=== PATIENT | male | born 1955 | race Caucasian/White ===

== ENCOUNTER → 2017-02-08 | Day surgery (SDC) | payer BC ==
[2017-02-03 15:07] LABS: Basophils # (auto) 0.1 uL; Basophils % (auto) 0.6 % (0.0-2.0); Eosinophils # (auto) 0.2 uL; Eosinophils % (auto) 2.9 % (0.0-7.0); Hematocrit 53.1 % (41.0-53.0); Hemoglobin 17.5 g/dL (13.5-17.5); Lymphocytes # (auto) 2.5 uL; Lymphocytes % (auto) 29.1 % (10.0-50.0); Mean Corpuscular Hemoglobin 29.5 pg (28.0-32.0); Mean Corpuscular Hgb Conc. 32.9 g/dL (32.0-36.0); Mean Corpuscular Volume 89.6 fL (80.0-100.0); Monocytes # (auto) 1.1 uL; Monocytes % (auto) 13.1 % (0.0-12.0); Neutrophils # (auto) 4.6 uL; Neutrophils % (auto) 54.3 % (37.0-80.0); Nucleated Red Blood Cells % 0.7 %; Platelet Count (auto) 266 10^3/uL (140-450); White Blood Cell 8.5 10^3/uL (4.4-10.8)
[2017-02-03 15:14] LABS: INR 0.99 (0.9-1.15); Partial Thromboplastin Time 28.7 sec (22.64-33.71); Prothrombin Time 10.8 sec (9.37-12.3)
[2017-02-03 15:19] LABS: Calcium 9.6 mg/dL (8.5-10.1); Potassium 4.2 mmol/L (3.5-5.1)
[2017-02-03 16:08] LABS: Urine Bilirubin Negative (Negative); Urine Blood TRACE /uL (Negative); Urine Color Yellow (Yellow); Urine Glucose Normal (Normal); Urine Ketone Negative (Negative); Urine Nitrite POSITIVE (Negative); Urine RBC 4 /hpf (0 - 3); Urine Squamous Epithelial Cell FEW /hpf (<5); Urine Urobilinogen Normal (Negative); Urine pH 6.5 (5.0-8.0)
[~2017-02-08] VITALS: Ht 182.9 cm; Wt 147.4 kg
[~2017-02-08] MED LIST: FENO145T20 PO; LISI-646 PO
== END | disposition home or self-care (01) ==
LOC: SUR 11:28
PROVIDERS: ATTEND Urology
DX: N32.9 Bladder disorder, unspecified (principal); Z53.8 Procedure and treatment not carried out for other reasons; E66.9 Obesity, unspecified; Z68.41 Body mass index [BMI] 40.0-44.9, adult; Z88.5 Allergy status to narcotic agent
CPT/HCPCS: 36415; 80048; 81001; 85025; 85610; 85730; 87086; 87088; 87186

== ENCOUNTER 2017-03-08 06:05 | Day surgery (SDC) | payer BC ==
[2017-03-04 12:47] LABS: Basophils # (auto) 0.1 uL; Basophils % (auto) 0.8 % (0.0-2.0); Eosinophils # (auto) 0.2 uL; Eosinophils % (auto) 2.7 % (0.0-7.0); Hematocrit 51.3 % (41.0-53.0); Hemoglobin 17.1 g/dL (13.5-17.5); Lymphocytes # (auto) 2.3 uL; Lymphocytes % (auto) 33.2 % (10.0-50.0); Mean Corpuscular Hemoglobin 29.6 pg (28.0-32.0); Mean Corpuscular Hgb Conc. 33.3 g/dL (32.0-36.0); Mean Corpuscular Volume 88.8 fL (80.0-100.0); Monocytes # (auto) 0.6 uL; Monocytes % (auto) 9.5 % (0.0-12.0); Neutrophils # (auto) 3.7 uL; Neutrophils % (auto) 53.8 % (37.0-80.0); Nucleated Red Blood Cells % 0.1 %; Platelet Count (auto) 255 10^3/uL (140-450); Red Cell Distribution Width 14.6 % (11.8-14.3); White Blood Cell 6.8 10^3/uL (4.4-10.8)
[2017-03-04 12:53] LABS: BUN/Creatinine Ratio 26.8; Calcium 9.6 mg/dL (8.5-10.1)
[2017-03-04 12:54] LABS: Urine Bilirubin Negative (Negative); Urine Blood 2+ /uL (Negative); Urine Color Yellow (Yellow); Urine Glucose Normal (Normal); Urine Ketone Negative (Negative); Urine Mucus FEW (None Seen); Urine Nitrite Negative (Negative); Urine RBC 32 /hpf (0 - 3); Urine Urobilinogen Normal (Negative); Urine pH 6.5 (5.0-8.0)
[2017-03-04 13:04] LABS: INR 1.01 (0.9-1.15); Partial Thromboplastin Time 29.1 sec (22.64-33.71)
[~2017-03-08] VITALS: Ht 182.9 cm; Wt 147.4 kg
[2017-03-08] MEDS ORDERED: ceFAZolin 1GM/50ML 50 ML IV ONE (06:53)
[2017-03-08] MEDS ORDERED: fentaNYL CITRATE 100 MCG/2 ML VL ONE (07:37)
[2017-03-08] MEDS ORDERED: MIDAZOLAM HCL 1MG/1ML-2 ML VIAL ONE (07:37)
[2017-03-08] MEDS ORDERED: PROPOFOL 10 MG/ML 20 ML IV ONE (07:37)
[2017-03-08] MEDS ORDERED: ROCURONIUM 10MG/ML 10ML VIAL IV ONE (07:38)
[2017-03-08] MEDS ORDERED: LIDOCAINE 1% HCL (LOCAL ANESTH.) INJ 20ML MDV ONE (07:43)
[2017-03-08] MEDS ORDERED: SUCCINYLCHOLINE CHLORIDE 20 MG/ML 10ML VIAL IV ONE (07:45)
[2017-03-08] MEDS ORDERED: IOHEXOL 300 MG/ML 100ML BOTTLE IJ ONE (08:25)
[2017-03-08] MEDS ORDERED: ONDANSETRON HCL 4 MG/2 ML VIAL IV ONE (09:45)
[2017-03-08] MEDS ORDERED: hydrALAZINE HCL 20 MG/ML VL IV PRN (09:45)
[2017-03-08] MEDS ORDERED: MORPHINE SULF INJ 2 MG/ML SYRINGE 1ML IV PRN (09:45)
[2017-03-08] MEDS ORDERED: ePHEDrine SULFATE 50 MG/ML AMP IV PRN (09:45)
[2017-03-08] MEDS ORDERED: FUROSEMIDE 20 MG/2 ML VIAL ONE (09:48)
[2017-03-08] MEDS ORDERED: FUROSEMIDE 20 MG/2 ML VIAL IV ONE (10:00)
[2017-03-08 11:10] VITALS: BP 108/81
== END 2017-03-08 11:10 | disposition home or self-care (01) ==
LOC: SUR 06:05
PROVIDERS: ATTEND Urology
DX: N20.0 Calculus of kidney (principal); N32.9 Bladder disorder, unspecified; D69.6 Thrombocytopenia, unspecified; Z88.5 Allergy status to narcotic agent; E66.9 Obesity, unspecified; Z68.41 Body mass index [BMI] 40.0-44.9, adult
CPT/HCPCS: 36415; 50590; 52224; 52332; 80048; 81001; 85025; 85610; 85730; 87086; C1769; C2617; J0330; J0690; J1940; J2001; J2250; J2704; J3010; Q9967

== ENCOUNTER → 2020-10-29 | Outpatient (CLI) | payer BC ==
[~2020-10-29] MED LIST changes: +BUPIVACAINE HCL 0.25% P/F 10 ML VIAL ONE; -FENO145T20 PO; +FENO145T27 PO; +IOHEXOL 300 MG/ML 100ML BOTTLE IJ ONE; +LIDOCAINE 2%HCL (LOCAL ANESTH.) INJ 20ML MDV ONE; -LISI-646 PO; +LISI20TA28 PO; +methylPREDNISolone ACETATE 80 MG/ML VL ONE
== END | disposition home or self-care (01) ==
LOC: XY 10:46
DX: M25.551 Pain in right hip (principal); Z88.5 Allergy status to narcotic agent; Z98.890 Other specified postprocedural states; Z79.899 Other long term (current) drug therapy
CPT/HCPCS: 20610; 73502; 77002; J1040; J3490; Q9967; 76000

== ENCOUNTER 2021-08-08 07:17 | Inpatient (IN) | payer BC ==
[~2021-08-08] VITALS: Ht 180.3 cm; Wt 122.0 kg
[~2021-08-08 07:17] MED LIST changes: -BUPIVACAINE HCL 0.25% P/F 10 ML VIAL ONE; -IOHEXOL 300 MG/ML 100ML BOTTLE IJ ONE; -LIDOCAINE 2%HCL (LOCAL ANESTH.) INJ 20ML MDV ONE; -methylPREDNISolone ACETATE 80 MG/ML VL ONE
[2021-08-08 08:45] LABS: Urine Bacteria NONE SEEN /hpf (None Seen); Urine Blood 3+ /uL (Negative); Urine Budding Yeast FEW /hpf (None Seen); Urine Mucus FEW (None Seen); Urine Specific Gravity 1.019 (1.001-1.035); Urine WBC 669 /hpf (0 - 3); Urine WBC Clumps PRESENT /hpf (None Seen)
[2021-08-08 09:40] LABS: Hematocrit 39.4 % (41.0-53.0); Mean Corpuscular Hemoglobin 29.1 pg (28.0-32.0); Mean Corpuscular Hgb Conc. 32.9 g/dL (32.0-36.0); Mean Corpuscular Volume 88.4 fL (80.0-100.0); Red Blood Cells 4.46 10^6/uL (4.5-5.90); Red Cell Distribution Width 14.6 % (11.8-14.3)
[2021-08-08 09:42] LABS: Basophils % (manual) 0 (0.0-2.0); Blast Cells 0; Eosinophils % (manual) 0 (0-7); Metamyelocytes % 0; Myelocytes % 0; Promyelocytes % 0; Reactive Lymphocytes 0
[2021-08-08] MEDS ORDERED: ONDANSETRON HCL 4 MG/2 ML VIAL IV ONE (10:00)
[2021-08-08] MEDS ORDERED: MORPHINE SULFATE 4 MG/ML SYR/VIAL IV ONE (10:00)
[2021-08-08 10:08] LABS: Calcium 9.3 mg/dL (8.5-10.1); Potassium 4.9 mmol/L (3.5-5.1)
[2021-08-08 10:13] LABS: Albumin 3.3 g/dL (3.4-5.0); BUN/Creatinine Ratio 15.5; Bilirubin, Total 0.9 mg/dL (0.2-1.0); Total Protein 7.1 g/dL (6.4-8.2)
[2021-08-08 10:31] LABS: Band Neutrophils % (manual) 23; Lymphocytes % (manual) 4 (10.0-50.0); Monocytes % (manual) 1 (0-12)
[2021-08-08] MEDS ORDERED: cefTRIAXone 1GM/50ML D5W 50 ML IV ONE (10:45)
[2021-08-08] MEDS ORDERED: SODIUM CHLORIDE 0.9% 1,000 ML IV ONE ×2 (12:00)
[2021-08-08] MEDS ORDERED: HYDROmorphone HCL 2 MG/ML VL/or syr IV ONE (12:15)
[2021-08-08] MEDS ORDERED: TAMSULOSIN HYDROCHLORIDE 0.4 MG CAP PO ONE (14:00)
[2021-08-08] MEDS ORDERED: ACETAMINOPHEN 500 MG TAB PO PRN (17:30)
[2021-08-08] MEDS ORDERED: ONDANSETRON HCL 4 MG/2 ML VIAL IV PRN (17:30)
[2021-08-08] MEDS ORDERED: MORPHINE SULFATE INJECTION 2 MG/ML SYRG IV PRN (17:30)
[2021-08-08] MEDS ORDERED: NITROGLYCERIN 0.4 MG SL TAB SL PRN (17:30)
[2021-08-08] MEDS ORDERED: MANNITOL 20% SOLN 100 gm/500ml 200 ML IV ONE (17:45)
[2021-08-08] MEDS ORDERED: KETOROLAC TROMETH 30 MG/ML 1ML VIAL IV PRN (18:15)
[2021-08-08] MEDS ORDERED: KETOROLAC TROMETH 30 MG/ML 1ML VIAL IV ONE (18:15)
[2021-08-08] MEDS ORDERED: SODIUM CHLORIDE 0.9% 500 ML IV ONE (18:15)
[2021-08-08] MEDS: SODIUM CHLORIDE 0.9% 1,000 ML IV SCH (18:28)
[2021-08-08] MEDS: PIPERACILLIN-TAZOB 2.25GM 50 ML IV SCH (18:44)
[2021-08-08] MEDS: ACETAMINOPHEN 325 MG TAB PO PRN (19:30)
[2021-08-08] MEDS: TAMSULOSIN HYDROCHLORIDE 0.4 MG CAP PO SCH (19:30)
[2021-08-08] MEDS ORDERED: HYDROcodone-ACET 5/325MG TAB PO PRN (21:30)
[2021-08-08] MEDS: NOREPINEPHRINE 8 MG/250ML KIT 250 ML IV SCH (21:54)
[2021-08-08 22:56] LABS: Lactic Acid w/Reflex 2.8 mmol/L (0.4-2.0)
[2021-08-09] MEDS: PIPERACILLIN-TAZOB 2.25GM 50 ML IV SCH ×4 (00:32→18:25)
[2021-08-09] MEDS ORDERED: NITROGLYCERIN 0.4 MG SL TAB SL PRN (01:15)
[2021-08-09] MEDS ORDERED: MORPHINE SULFATE INJECTION 2 MG/ML SYRG IV PRN (01:15)
[2021-08-09] MEDS: SODIUM CHLORIDE 0.9% 1,000 ML IV SCH ×4 (02:07→19:48)
[2021-08-09 06:40] LABS: Calcium 8.2 mg/dL (8.5-10.1); Potassium 4.7 mmol/L (3.5-5.1)
[2021-08-09 06:43] LABS: Lactic Acid w/Reflex 3.6 mmol/L (0.4-2.0)
[2021-08-09 07:27] LABS: Hematocrit 36.5 % (41.0-53.0); Hemoglobin 12.2 g/dL (13.5-17.5); Mean Corpuscular Hgb Conc. 33.4 g/dL (32.0-36.0); Mean Corpuscular Volume 89.8 fL (80.0-100.0); Red Blood Cells 4.07 10^6/uL (4.5-5.90); Red Cell Distribution Width 14.9 % (11.8-14.3); White Blood Cell 16.1 10^3/uL (4.4-10.8)
[2021-08-09 07:39] LABS: Basophils % (manual) 0 (0.0-2.0); Blast Cells 0; Eosinophils % (manual) 0 (0-7); Promyelocytes % 0
[2021-08-09] MEDS ORDERED: MORPHINE SULFATE 4 MG/ML SYR/VIAL IV PRN (12:00)
[2021-08-09] MEDS: TAMSULOSIN HYDROCHLORIDE 0.4 MG CAP PO SCH (18:25)
[2021-08-09 19:15] LABS: Band Neutrophils % (manual) 13; Lymphocytes % (manual) 5 (10.0-50.0); Metamyelocytes % 2; Monocytes % (manual) 6 (0-12); Myelocytes % 1; Reactive Lymphocytes 2
[2021-08-09] MEDS: NOREPINEPHRINE 8 MG/250ML KIT 250 ML IV SCH (19:37)
[2021-08-09] MEDS: MORPHINE SULFATE INJECTION 2 MG/ML SYRG IV PRN (20:16)
[2021-08-09] MEDS: ACETAMINOPHEN 325 MG TAB PO PRN (22:48)
[2021-08-10] MEDS: PIPERACILLIN-TAZOB 2.25GM 50 ML IV SCH ×4 (00:17→18:16)
[2021-08-10] MEDS: MORPHINE SULFATE INJECTION 2 MG/ML SYRG IV PRN (00:18)
[2021-08-10] MEDS: SODIUM CHLORIDE 0.9% 1,000 ML IV SCH ×3 (02:27→16:12)
[2021-08-10 06:11] LABS: Hematocrit 32.8 % (41.0-53.0); Mean Corpuscular Hemoglobin 29.8 pg (28.0-32.0); Mean Corpuscular Hgb Conc. 33.4 g/dL (32.0-36.0); Red Blood Cells 3.68 10^6/uL (4.5-5.90); Red Cell Distribution Width 14.9 % (11.8-14.3); White Blood Cell 12.3 10^3/uL (4.4-10.8)
[2021-08-10 06:21] LABS: INR 1.24 (0.9-1.15); Partial Thromboplastin Time 32.2 sec (23.6-33.0)
[2021-08-10 06:22] LABS: BUN/Creatinine Ratio 16.5; Calcium 7.8 mg/dL (8.5-10.1); Potassium 4.2 mmol/L (3.5-5.1)
[2021-08-10 07:41] LABS: Basophils % (manual) 0 (0.0-2.0); Blast Cells 0; Metamyelocytes % 0; Myelocytes % 0; Promyelocytes % 0; Reactive Lymphocytes 0
[2021-08-10 09:05] LABS: Band Neutrophils % (manual) 3; Eosinophils % (manual) 2 (0-7); Lymphocytes % (manual) 2 (10.0-50.0); Monocytes % (manual) 10 (0-12)
[2021-08-10] MEDS: NOREPINEPHRINE 8 MG/250ML KIT 250 ML IV SCH (17:30)
[2021-08-10] MEDS: TAMSULOSIN HYDROCHLORIDE 0.4 MG CAP PO SCH (18:24)
[2021-08-10 22:00] VITALS: BP 140/77
[2021-08-10 22:09] VITALS: BP 144/79
[2021-08-10] MEDS: ACETAMINOPHEN 325 MG TAB PO PRN (22:43)
[2021-08-11] MEDS: PIPERACILLIN-TAZOB 2.25GM 50 ML IV SCH ×4 (00:03→18:00)
[2021-08-11] MEDS: SODIUM CHLORIDE 0.9% 1,000 ML IV SCH ×2 (02:12→05:39)
[2021-08-11] MEDS: ACETAMINOPHEN 325 MG TAB PO PRN ×2 (04:28→09:30)
[2021-08-11 05:00] VITALS: BP 117/62
[2021-08-11 07:50] LABS: Hematocrit 35.8 % (41.0-53.0); Hemoglobin 11.5 g/dL (13.5-17.5); Mean Corpuscular Hemoglobin 29.1 pg (28.0-32.0); Mean Corpuscular Volume 90.9 fL (80.0-100.0); Red Blood Cells 3.94 10^6/uL (4.5-5.90); Red Cell Distribution Width 15.4 % (11.8-14.3); White Blood Cell 9.2 10^3/uL (4.4-10.8)
[2021-08-11 07:53] LABS: Basophils % (manual) 0 (0.0-2.0); Blast Cells 0; Eosinophils % (manual) 0 (0-7); Metamyelocytes % 0; Myelocytes % 0; Promyelocytes % 0; Reactive Lymphocytes 0
[2021-08-11 08:00] VITALS: BP 117/70
[2021-08-11 08:06] LABS: Potassium 4.2 mmol/L (3.5-5.1)
[2021-08-11 08:07] LABS: BUN/Creatinine Ratio 22.3; Calcium 8.5 mg/dL (8.5-10.1)
[2021-08-11 08:32] LABS: Band Neutrophils % (manual) 27; Lymphocytes % (manual) 20 (10.0-50.0); Monocytes % (manual) 3 (0-12)
[2021-08-11 09:00] VITALS: BP 117/70
[2021-08-11 11:06] LABS: Phosphorus 2.8 mg/dL (2.5-4.90); Uric Acid 6.9 mg/dL (3.5-7.2)
[2021-08-11 12:55] VITALS: BP 156/77
[2021-08-11] MEDS ORDERED: AMOX-277 PO (13:13)
[2021-08-11] MEDS ORDERED: AML5T PO (13:13)
[2021-08-11] MEDS ORDERED: TAM04C PO (13:13)
[2021-08-11] MEDS ORDERED: SODIUM CHLORIDE 0.9% 1,000 ML IV SCH (13:15)
[2021-08-11] MEDS ORDERED: amLODIPine BESYLATE 5 MG TAB PO SCH (13:15)
[2021-08-11 17:00] VITALS: BP 159/87
[2021-08-11] MEDS: TAMSULOSIN HYDROCHLORIDE 0.4 MG CAP PO SCH (18:31)
== END 2021-08-11 18:38 | disposition home or self-care (01) | DRG 872 ==
LOC: ER 07:17 → DOU IN ICU 17:16 → OVERFLOW 18:08 → TELE-CENTR 08-10 21:23
PROVIDERS: ADMIT Hospitalist; ATTEND Hospitalist
PROC: 05HY33Z Insertion of Infusion Device into Upper Vein, Percutaneous Approach (ICD-10-PCS; principal; 2021-08-08)
DX: A41.9 Sepsis, unspecified organism (principal); E44.1 Mild protein-calorie malnutrition; N13.6 Pyonephrosis; N17.9 Acute kidney failure, unspecified; J96.11 Chronic respiratory failure with hypoxia; G89.29 Other chronic pain; I13.10 Hypertensive heart and chronic kidney disease without heart failure, with stage 1 through stage 4 chronic kidney disease, or unspecified chronic kidney disease; K42.9 Umbilical hernia without obstruction or gangrene; K57.30 Diverticulosis of large intestine without perforation or abscess without bleeding; M16.10 Unilateral primary osteoarthritis, unspecified hip; N18.9 Chronic kidney disease, unspecified; Z20.822 Contact with and (suspected) exposure to COVID-19; N40.0 Benign prostatic hyperplasia without lower urinary tract symptoms; E66.01 Morbid (severe) obesity due to excess calories; Z87.442 Personal history of urinary calculi; Z68.37 Body mass index [BMI] 37.0-37.9, adult; Z82.49 Family history of ischemic heart disease and other diseases of the circulatory system; Z88.5 Allergy status to narcotic agent
CPT/HCPCS: 36415; 36556; 71045; 74176; 76775; 80048; 80053; 81001; 82306; 83605; 83970; 84100; 84550; 85007; 85027; 85610; 85730; 87040; 87086; 93005; 96365; 96375; 97163; 99291; G0378; J0696; J1885; J2405; J2543

== ENCOUNTER 2022-05-04 06:17 | Inpatient (IN) | payer BC, MEDICARE ==
[~2022-05-04] VITALS: Ht 182.9 cm; Wt 129.0 kg
[~2022-05-04 06:17] MED LIST changes: +ALLO300T2 PO; +BACL20TA PO; -FENO145T27 PO; +FENO160T8 PO; +FINA5TAB4 PO; +HYDR12.56 PO; -LISI20TA28 PO; +LOVA20TA4 PO; +TAM04C PO; +TRAM50TA2 PO
[2022-05-04] MEDS ORDERED: DexAMETHasone SOD PHOS 4 MG/1ML SDV INJ ONE (06:41)
[2022-05-04] MEDS ORDERED: EPINEPHrine HCL 1 MG/1 ML AMP ONE (06:41)
[2022-05-04] MEDS ORDERED: BUPIVACAINE 0.25% INJ 50ML VIAL ONE ×2 (06:42→06:58)
[2022-05-04] MEDS ORDERED: ceFAZolin 1GM/50ML 100 ML IV ONE (06:45)
[2022-05-04] MEDS ORDERED: PROPOFOL 10 MG/ML 20 ML IV ONE ×6 (06:55→10:08)
[2022-05-04] MEDS ORDERED: GLYCOPYRROLATE 0.2 MG/ML 1ML VIAL ONE (06:57)
[2022-05-04] MEDS ORDERED: DexAMETHasone SOD PHOS 10MG/1ML VIAL INJ ONE (06:58)
[2022-05-04] MEDS ORDERED: LIDOCAINE 1% (LOCAL ANESTH.) PF 5ml SDV ONE (06:58)
[2022-05-04] MEDS ORDERED: KETOROLAC TROMETH 30 MG/ML 1ML VIAL ONE ×2 (06:58→07:00)
[2022-05-04] MEDS ORDERED: ONDANSETRON HCL 4 MG/2 ML VIAL ONE (06:58)
[2022-05-04] MEDS ORDERED: TRANEXAMIC ACID 20 ML ONE (06:58)
[2022-05-04] MEDS: VANCOMYCIN HCL 1000 MG VL ONE ×2 (07:01→10:10)
[2022-05-04] MEDS ORDERED: MORPHINE SULF PF 5 MG/10 ML VIAL ONE (07:05)
[2022-05-04] MEDS ORDERED: MIDAZOLAM HCL 2MG/2ML 2ml VIAL (1mg/ml) ONE (07:22)
[2022-05-04] MEDS ORDERED: ePHEDrine SULFATE 50 MG/ML AMP ONE (08:15)
[2022-05-04] MEDS ORDERED: SODIUM CHLORIDE LOCK 10 ML ONE ×2 (08:16→08:47)
[2022-05-04] MEDS ORDERED: fentaNYL CITRATE 100 MCG/2 ML VL ONE (10:38)
[2022-05-04] MEDS ORDERED: NITROGLYCERIN 0.4 MG SL TAB SL PRN (10:45)
[2022-05-04] MEDS ORDERED: MORPHINE SULFATE INJ 2 MG/ml SYRG IV PRN (10:45)
[2022-05-04] MEDS: D5W/LACTATED RINGERS 1,000 ML IV SCH ×2 (10:45→20:45)
[2022-05-04] MEDS ORDERED: LABETALOL HCL 5 MG/ML 4ML SYRINGE IV PRN (11:00)
[2022-05-04] MEDS ORDERED: HYDROmorphone HCL 2 MG/ML VL/or syr IV PRN (11:00)
[2022-05-04] MEDS ORDERED: ePHEDrine SULFATE 50 MG/ML AMP IV PRN (11:00)
[2022-05-04] MEDS ORDERED: FLUMAZENIL 0.1 MG/ML INJ 10ML MDV IV PRN (11:00)
[2022-05-04] MEDS ORDERED: ONDANSETRON HCL 4 MG/2 ML VIAL IV PRN (11:00)
[2022-05-04] MEDS ORDERED: NALOXONE HCL 0.4 MG/ML VIAL IV PRN (11:00)
[2022-05-04] MEDS ORDERED: fentaNYL CITRATE 100 MCG/2 ML VL IV PRN (11:00)
[2022-05-04] MEDS ORDERED: hydrALAZINE HCL 20 MG/ML VL IV PRN (11:00)
[2022-05-04] MEDS ORDERED: KETOROLAC TROMETH 30 MG/ML 1ML VIAL IV SCH (12:00)
[2022-05-04] MEDS ORDERED: ACETAMINOPHEN 325 MG TAB PO SCH (12:00)
[2022-05-04] MEDS ORDERED: ceFAZolin 2 GM in D5W 5% 100 ML IV SCH (14:00)
[2022-05-04] MEDS ORDERED: BACLOFEN 10 MG TAB PO SCH (14:00)
[2022-05-04] MEDS ORDERED: PATIENTS OWN MEDICATION (Baclofen 10 MG) PO SCH (14:00)
[2022-05-04 17:52] VITALS: BP 114/59
[2022-05-04] MEDS: TAMSULOSIN HYDROCHLORIDE 0.4 MG CAP PO SCH (17:59)
[2022-05-04] MEDS: oxyCODONE HCL 5MG TAB PO PRN ×2 (18:00→22:11)
[2022-05-04] MEDS: PREGABALIN 25 MG CAP PO SCH (21:09)
[2022-05-04] MEDS ORDERED: PRAVASTATIN SODIUM 20 MG TAB PO SCH (22:00)
[2022-05-05 00:39] VITALS: BP 126/63
[2022-05-05] MEDS: ACETAMINOPHEN 325 MG TAB PO SCH ×3 (02:00→13:44)
[2022-05-05] MEDS: KETOROLAC TROMETH 30 MG/ML 1ML VIAL IV SCH ×3 (03:17→14:14)
[2022-05-05] MEDS: BACLOFEN 10 MG TAB PO SCH ×2 (04:41→11:47)
[2022-05-05] MEDS ORDERED: ceFAZolin 2 GM in D5W 5% 100 ML IV SCH (05:00)
[2022-05-05] MEDS: D5W/LACTATED RINGERS 1,000 ML IV SCH ×2 (06:30→16:45)
[2022-05-05 07:23] LABS: Basophils # (auto) 0 10 ^3/uL (0-0.2); Basophils % (auto) 0.3 % (0.0-2.0); Eosinophils # (auto) 0 10 ^3/uL (0-0.8); Eosinophils % (auto) 0.5 % (0.0-7.0); Hematocrit 37.1 % (41.0-53.0); Lymphocytes # (auto) 1.6 10 ^3/uL (0.4-5.4); Lymphocytes % (auto) 20.3 % (10.0-50.0); Mean Corpuscular Hemoglobin 28.3 pg (28.0-32.0); Mean Corpuscular Hgb Conc. 32.5 g/dL (32.0-36.0); Monocytes % (auto) 11.8 % (0.0-12.0); Neutrophils # (auto) 5.4 10 ^3/uL (1.6-8.6); Neutrophils % (auto) 67.1 % (37.0-80.0); Red Blood Cells 4.26 10^6/uL (4.5-5.90); Red Cell Distribution Width 14.6 % (11.8-14.3); White Blood Cell 8.1 10^3/uL (4.4-10.8)
[2022-05-05 07:40] LABS: Calcium 8.8 mg/dL (8.5-10.1); Potassium 3.9 mmol/L (3.5-5.1)
[2022-05-05] MEDS: PREGABALIN 25 MG CAP PO SCH (08:05)
[2022-05-05 08:40] VITALS: BP 129/52
[2022-05-05] MEDS ORDERED: Fenofibrate 160 MG TAB PO SCH (10:00)
[2022-05-05] MEDS ORDERED: PANTOPRAZOLE 40 MG/10 ML VIAL INJ IV SCH (10:00)
[2022-05-05] MEDS ORDERED: ALLOPURINOL 300 MG TAB PO SCH (10:00)
[2022-05-05] MEDS ORDERED: FINASTERIDE 5 MG TAB PO SCH (10:00)
[2022-05-05] MEDS ORDERED: HCTZ 25 MG TAB PO SCH (10:00)
[2022-05-05] MEDS ORDERED: PATIENTS OWN MEDICATION (Hydrochlorothiazide 12.5 MG) PO SCH (10:00)
[2022-05-05] MEDS ORDERED: APIXABAN 2.5 MG TAB PO SCH (10:00)
[2022-05-05] MEDS ORDERED: PATIENTS OWN MEDICATION (Lovastatin 20 MG) PO SCH (10:00)
[2022-05-05] MEDS: oxyCODONE HCL 5MG TAB PO PRN ×2 (11:56→18:31)
[2022-05-05 12:45] VITALS: BP 124/61
[2022-05-05 15:17] VITALS: BP 129/52
[2022-05-05 16:30] VITALS: BP 116/57
[2022-05-05] MEDS: TAMSULOSIN HYDROCHLORIDE 0.4 MG CAP PO SCH (18:00)
== END 2022-05-05 18:47 | disposition home or self-care (01) | DRG 470 ==
LOC: SUR 06:17 → TELE 10:46 → OVERFLOW 14:50 → WEST WING 16:54
PROVIDERS: ADMIT Orthopaedic Surgery; ATTEND Orthopaedic Surgery
PROC: 0SR906Z Replacement of Right Hip Joint with Oxidized Zirconium on Polyethylene Synthetic Substitute, Open Approach (ICD-10-PCS; principal; 2022-05-04 07:46)
DX: M16.11 Unilateral primary osteoarthritis, right hip (principal); Z82.49 Family history of ischemic heart disease and other diseases of the circulatory system; Z20.822 Contact with and (suspected) exposure to COVID-19
CPT/HCPCS: 36415; 72170; 80048; 85025; 86850; 86900; 86901; 97163; C9113; G0378; J0171; J0690; J1100; J1885; J2250; J2405; J2704; J3490; J7060

== ENCOUNTER 2022-07-22 14:33 | Emergency (ER) | payer BC, MEDICARE ==
[~2022-07-22] VITALS: Ht 182.9 cm; Wt 131.4 kg
[2022-07-22 15:17] VITALS: BP 140/67
[2022-07-22 15:17] LABS: Urine Bacteria NONE SEEN /hpf (None Seen); Urine Blood Negative /uL (Negative); Urine Mucus FEW (None Seen); Urine Specific Gravity 1.019 (1.001-1.035); Urine WBC 62 /hpf (0 - 3)
[2022-07-22] MEDS ORDERED: cefTRIAXone SOD 1,000 MG VL IM ONE ×2 (15:30)
[2022-07-22] MEDS ORDERED: VIBE75TA PO (16:17)
[2022-07-22] MEDS ORDERED: CIPR-173 PO (16:17)
== END 2022-07-22 16:24 | disposition home or self-care (01) ==
LOC: ER 14:33
DX: N39.0 Urinary tract infection, site not specified (principal); E78.5 Hyperlipidemia, unspecified; I10 Essential (primary) hypertension; Z87.442 Personal history of urinary calculi; Z79.899 Other long term (current) drug therapy; Z98.890 Other specified postprocedural states
CPT/HCPCS: 81001; 96372; 99284; J0696

== ENCOUNTER 2023-08-28 07:46 | Inpatient (IN) | payer BC, MEDICARE ==
[~2023-08-28] VITALS: Ht 180.3 cm; Wt 141.0 kg
[~2023-08-28 07:46] MED LIST changes: +CIPR-173 PO; +FENO160T PO; -FENO160T8 PO; -HYDR12.56 PO; +HYDR12.59 PO; -TAM04C PO; +TAMS-35 PO; +VIBE75TA PO
[2023-08-28 08:07] LABS: Urine Bacteria FEW /hpf (None Seen); Urine Blood Negative /uL (Negative); Urine Clarity Clear (Clear); Urine Color Light-Yellow (Yellow); Urine Hyaline Cast FEW /lpf (0 - 2); Urine Mucus FEW (None Seen); Urine Protein, UAD 1+ (Negative); Urine Specific Gravity 1.024 (1.001-1.035); Urine Urobilinogen Normal (Negative); Urine WBC 1 /hpf (0 - 3); Urine pH 5.5 (5.0-9.0)
[2023-08-28] MEDS: IBUPROFEN 600 MG TAB PO ONE (09:03)
[2023-08-28 09:15] LABS: Basophils # (auto) 0.1 10 ^3/uL (0-0.2); Basophils % (auto) 0.4 % (0.0-2.0); Eosinophils # (auto) 0 10 ^3/uL (0-0.8); Eosinophils % (auto) 0.1 % (0.0-7.0); Hematocrit 47.7 % (41.0-53.0); Hemoglobin 15.9 g/dL (13.5-17.5); Lymphocytes # (auto) 0.6 10 ^3/uL (0.4-5.4); Lymphocytes % (auto) 4.3 % (10.0-50.0); Mean Corpuscular Hemoglobin 29.3 pg (28.0-32.0); Mean Corpuscular Hgb Conc. 33.3 g/dL (32.0-36.0); Mean Corpuscular Volume 87.9 fL (80.0-100.0); Monocytes # (auto) 0.8 10 ^3/uL (0-1.3); Monocytes % (auto) 5.3 % (0.0-12.0); Neutrophils # (auto) 13.5 10 ^3/uL (1.6-8.6); Neutrophils % (auto) 89.9 % (37.0-80.0); Nucleated Red Blood Cells % 0.1 %; Red Blood Cells 5.43 10^6/uL (4.5-5.90); Red Cell Distribution Width 14.5 % (11.8-14.3)
[2023-08-28 09:22] LABS: Chloride 107 mmol/L (98-107); Potassium 3.7 mmol/L (3.5-5.1); Sodium 137 mmol/L (136-145)
[2023-08-28 09:23] LABS: Anion Gap 7 (5-15); Calcium 9.9 mg/dL (8.5-10.1); Carbon Dioxide 23 mmol/L (20-30)
[2023-08-28 09:28] LABS: BUN/Creatinine Ratio 22.6 (10.0-20.0); Blood Urea Nitrogen 19 mg/dL (9-23); Glucose 131 mg/dL (74-106)
[2023-08-28 09:35] VITALS: PULSE 85; RESP 12; O2SAT 95
[2023-08-28 09:55] LABS: Alanine Aminotransferase 56 U/L (7-40); Albumin 4.6 g/dL (3.2-4.8); Alkaline Phosphatase 60 U/L (46-116); Anion Gap 7 (5-15); Aspartate Aminotransferase 34 U/L (13-40); Blood Urea Nitrogen 23 mg/dL (9-23); Calcium 10.1 mg/dL (8.5-10.1); Carbon Dioxide 23 mmol/L (20-30); Chloride 107 mmol/L (98-107); Glucose 130 mg/dL (74-106); Sodium 137 mmol/L (136-145)
[2023-08-28 09:56] LABS: COVID19 ANTIGEN SOFIA FIA NEGATIVE (NEGATIVE); Rapid Influenza A Negative (Negative); Rapid Influenza B Negative (Negative)
[2023-08-28 09:56] LABS: Bilirubin, Total 0.8 mg/dL (0.2-1.0)
[2023-08-28] MEDS: SODIUM CHLORIDE 0.9% 1,000 ML IV ONE (11:45)
[2023-08-28] MEDS ORDERED: ONDANSETRON HCL 4 MG/2 ML VIAL IV PRN (14:00)
[2023-08-28] MEDS ORDERED: MORPHINE SULFATE INJ 2 MG/ml SYRG IV PRN ×2 (14:00)
[2023-08-28] MEDS ORDERED: HYDROcodone-ACET 5/325MG TAB PO PRN (14:00)
[2023-08-28] MEDS ORDERED: NITROGLYCERIN 0.4 MG SL TAB SL PRN (14:00)
[2023-08-28] MEDS: SODIUM CHLORIDE 0.9% 1,000 ML IV SCH (15:37)
[2023-08-28] MEDS ORDERED: FIN5T PO (16:54)
[2023-08-28] MEDS ORDERED: AMLO1TAB22 PO (16:54)
[2023-08-28] MEDS ORDERED: TAMS0.4C36 PO (16:54)
[2023-08-28] MEDS ORDERED: ATOR40TA52 PO (16:54)
[2023-08-28 17:00] VITALS: BP 173/100; PULSE 82; RESP 18; TEMP 98.7; O2SAT 97
[2023-08-28 17:30] VITALS: BP_SYST 143; BP_SYST 154; BP_SYST 165; BP_DIAS 102; BP_DIAS 81; BP_DIAS 92; PULSE 86; PULSE 90; PULSE 98; RESP 16; RESP 18; RESP 22; O2SAT 98
[2023-08-28] MEDS: PIPERACILLIN-TAZOB 3.375GM 100 ML IV SCH (17:45)
[2023-08-28] MEDS: ACETAMINOPHEN 325 MG TAB PO PRN (18:12)
[2023-08-28] MEDS ORDERED: NUTRCAP OR (18:23)
[2023-08-28] MEDS ORDERED: COEN150C4 PO (18:23)
[2023-08-28] MEDS ORDERED: CINN500C7 PO (18:23)
[2023-08-28] MEDS ORDERED: DOCU240C23 PO (18:23)
[2023-08-28 19:30] VITALS: PULSE 78; RESP 18; O2SAT 97
[2023-08-28 21:00] VITALS: BP 157/80; PULSE 83; RESP 14; TEMP 98; O2SAT 95
[2023-08-29 01:00] VITALS: BP 143/87; PULSE 90; RESP 16; TEMP 99.3; O2SAT 92
[2023-08-29 05:00] VITALS: BP 143/100; PULSE 90; RESP 16; TEMP 98.1; O2SAT 96
[2023-08-29 08:30] VITALS: PULSE 84; PULSE 86; RESP 18; O2SAT 97
[2023-08-29] MEDS: ENOXAPARIN SOD 40 MG/0.4 ML SYRINGE SC SCH (09:16)
[2023-08-29 09:19] VITALS: BP 149/93; PULSE 107; RESP 20; TEMP 98.2; O2SAT 96
[2023-08-29 13:22] VITALS: BP 164/88; PULSE 94; RESP 18; TEMP 98.2; O2SAT 96
[2023-08-29] MEDS ORDERED: DOCUSATE CALCIUM 240 MG CAP PO SCH (15:30)
[2023-08-29] MEDS ORDERED: BACLOFEN 10 MG TAB PO PRN (16:00)
[2023-08-29] MEDS ORDERED: DOCUSATE CALCIUM 240 MG CAP PO PRN (16:15)
[2023-08-29] MEDS ORDERED: AUG875T PO (16:30)
[2023-08-29 16:53] VITALS: BP 167/74; PULSE 82; RESP 16; TEMP 98.6; O2SAT 95
[2023-08-29] MEDS ORDERED: ALLOPURINOL 100 MG TAB PO SCH (22:00)
[2023-08-29] MEDS ORDERED: TAMSULOSIN HYDROCHLORIDE 0.4 MG CAP PO SCH (22:00)
[2023-08-29] MEDS ORDERED: ATORVASTATIN 20 MG TAB PO SCH (22:00)
[2023-08-29] MEDS ORDERED: amLODIPine BESYLATE 5 MG TAB PO SCH (22:00)
[2023-08-29] MEDS ORDERED: Fenofibrate 160 MG PO SCH (22:00)
[2023-08-29] MEDS ORDERED: FINASTERIDE 5 MG TAB PO SCH (22:00)
== END 2023-08-29 17:00 | disposition home or self-care (01) | DRG 392 ==
LOC: ER 07:46 → TELE 13:55 → TELE-WESTW 17:16
PROVIDERS: ADMIT Internal Medicine; ATTEND Internal Medicine
DX: K52.9 Noninfective gastroenteritis and colitis, unspecified (principal); Z68.41 Body mass index [BMI] 40.0-44.9, adult; E66.01 Morbid (severe) obesity due to excess calories; I10 Essential (primary) hypertension; N20.0 Calculus of kidney; M10.9 Gout, unspecified; Z20.822 Contact with and (suspected) exposure to COVID-19; N40.0 Benign prostatic hyperplasia without lower urinary tract symptoms; E78.1 Pure hyperglyceridemia; Z87.440 Personal history of urinary (tract) infections; Z86.73 Personal history of transient ischemic attack (TIA), and cerebral infarction without residual deficits; Z79.2 Long term (current) use of antibiotics; Z79.899 Other long term (current) drug therapy; Z87.442 Personal history of urinary calculi
CPT/HCPCS: 36415; 70450; 71045; 74176; 80048; 80053; 81001; 85025; 87086; 87426; 87493; 87804; 93306; 93886; G0378; J2543